=== PATIENT | female | born 1945 ===

== ENCOUNTER 2016-06-01 11:36 | Emergency (ER) | payer OTHER ==
[2016-06-01 11:41] VITALS: BP 145/67; PULSE 90; RESP 16; TEMP 97.8; O2SAT 98; BMI 31.0
--- NOTE | 2016-06-01 12:35 | ED PDOC ---
HPI: Eye Injury/Pain Time Seen by Provider: 06/01/16 12:32 Chief Complaint (Nursing): Eye Problem Chief Complaint (Provider): b/l eye irratation History Per: Patient Additional Complaint(s): 70yo F in ED for eval of b/l eye irritation with itching redness yellow drainage i the A, and blurry vision only with increased d/c in eye. denies photophobia, FB sensation, LANDIN. doesn't wear contact lenses dneis direct injury to eye. Past Medical History Reviewed: Historical Data, Nursing Documentation, Vital Signs Vital Signs: Last Vital Signs Temp 97.8 F 06/01/16 11:40 Pulse 90 06/01/16 11:40 Resp 16 06/01/16 11:40 BP 145/67 06/01/16 11:40 Pulse Ox 98 06/01/16 11:40 - Medical History PMH: Osteoporosis - Surgical History Surgical History: Cholecystectomy - Family History Family History: States: No Known Family Hx - Home Medications Home Medications: Ambulatory Orders Medication Instructions Recorded Alendronate [Fosamax] 1 tab PO QWK 06/01/16 Baclofen [Lioresal] 1 tab PO BID 06/01/16 Calcium Carbonate [Oscal] 1 tab PO DAILY 06/01/16 Pentoxifylline [Pentoxil] 1 tab PO BID 06/01/16 Polymyxin/Trimethoprim Sulfate 100 drop OD BID #1 bottle 06/01/16 [Polytrim Ophth Soln] - Allergies Allergies/Adverse Reactions: Allergies Allergy/AdvReac Type Severity Reaction Status Date / Time No Known Allergies Allergy Unverified 12/15/13 09:46 Review of Systems ROS Statement: Except As Marked, All Systems Reviewed And Found Negative Eyes: Positive for: Conjunctivae Inflammation Physical Exam - Reviewed Nursing Documentation Reviewed: Yes Vital Signs Reviewed: Yes - Physical Exam Appears: Positive for: Well, Non-toxic, No Acute Distress Head Exam: Positive for: ATRAUMATIC, NORMAL INSPECTION, NORMOCEPHALIC Skin: Positive for: Normal Color, Warm, DRY Eye Exam: Positive for: EOMI, PERRL, Conjunctival injection, Other (b/l eye: red , no FB noted on lid everision, (-) floursceiene uptake, (-) hyphema). Negative for: Periorbital swelling, Periorbital tenderness, Scleral icterus Cardiovascular/Chest: Positive for: Regular Rate, Rhythm Respiratory: Positive for: CNT, Normal Breath Sounds Neurologic/Psych: Positive for: Alert, Oriented - ECG O2 Sat by Pulse Oximetry: 98 Medical Decision Making Medical Decision Making: dx: bacterial conjunctivitis tx: polytrim advised to have pmd f/u Disposition - Clinical Impression Clinical Impression: Conjunctivitis - Patient ED Disposition Is Patient to be Admitted: No Counseled Patient/Family Regarding: Studies Performed, Diagnosis, Need For Followup, Rx Given - Disposition Disposition: Routine/Home Disposition Time: 12:36 Condition: STABLE Prescriptions: Polymyxin/Trimethoprim Sulfate [Polytrim Ophth Soln] 100 drop OD BID #1 bottle Instructions: Conjunctivitis (ED) Forms: [facility] ED School/Work Excuse Print Language: ENGLISH
== END 2016-06-01 12:42 | disposition home or self-care (01) ==
LOC: SUPCPDRO 11:36 → H.ER 11:36
DX: H10.9 Unspecified conjunctivitis (principal)

== ENCOUNTER 2018-02-05 14:45 | Emergency (ER) | payer MEDICARE, OTHER ==
[2018-02-05 14:57] VITALS: BMI 27.6
[2018-02-05 14:58] VITALS: BP 147/65; PULSE 86; RESP 20; TEMP 98.9; O2SAT 97
--- NOTE | 2018-02-05 15:23 | ED PDOC ---
Lower Extremity Pain/Injury Time Seen by Provider: 02/05/18 15:15 Chief Complaint (Nursing): Lower Extremity Problem/Injury Chief Complaint (Provider): Right Knee Pain History Per: Patient, Family (son) History/Exam Limitations: no limitations Onset/Duration Of Symptoms: Days (x4) Additional Complaint(s): 72 year old female presents to the ED s/p right shoulder surgery secondary to a workers comp injury for evaluation of progressively worsening right knee pain for the last four days. She was seen by her PMD for this and given Naproxen. Both Naproxen and Percocet taken today provided no control of her pain however. Denies falls. PMD: none provided Past Medical History Reviewed: Historical Data, Nursing Documentation, Vital Signs Vital Signs: Last Vital Signs Temp 98.9 F 02/05/18 14:58 Pulse 86 02/05/18 14:58 Resp 20 02/05/18 14:58 BP 147/65 02/05/18 14:58 Pulse Ox 97 02/05/18 14:58 - Medical History PMH: Osteoporosis - Surgical History Surgical History: Cholecystectomy - Family History Family History: States: Unknown Family Hx - Social History Current smoker - smoking cessation education provided: No Alcohol: None Drugs: Denies - Home Medications Home Medications: Ambulatory Orders Medication Instructions Recorded Alendronate [Fosamax] 1 tab PO QWK 06/01/16 Baclofen [Lioresal] 1 tab PO BID 06/01/16 Calcium Carbonate [Oscal] 1 tab PO DAILY 06/01/16 Pentoxifylline [Pentoxil] 1 tab PO BID 06/01/16 Polymyxin/Trimethoprim Sulfate 100 drop OD BID #1 bottle 06/01/16 [Polytrim Ophth Soln] - Allergies Allergies/Adverse Reactions: Allergies Allergy/AdvReac Type Severity Reaction Status Date / Time No Known Allergies Allergy Unverified 12/15/13 09:46 Review of Systems ROS Statement: Except As Marked, All Systems Reviewed And Found Negative Musculoskeletal: Positive for: Other (right knee pain) Physical Exam - Reviewed Nursing Documentation Reviewed: Yes Vital Signs Reviewed: Yes - Physical Exam Appears: Positive for: Uncomfortable Skin: Positive for: Normal Color Extremity: Positive for: Normal ROM (able to flex and extend right knee with mild pain), Tenderness (right medial knee with minimal effusion) Neurologic/Psych: Negative for: Motor/Sensory Deficits - ECG O2 Sat by Pulse Oximetry: 97 - Progress ED Course And Treament: knee xry right: neg for fx Medical Decision Making Medical Decision Making: Time: 1550 Initial Impression: right knee injury Initial Plan: --XR right knee Scribe Attestation: Documented by Tatyana Moctezuma, acting as a scribe for Radha Nam PA-C. Provider Scribe Attestation: All medical record entries made by the Scribe were at my direction and personally dictated by me. I have reviewed the chart and agree that the record accurately reflects my personal performance of the history, physical exam, medical decision making, and the department course for this patient. I have also personally directed, reviewed, and agree with the discharge instructions and disposition. Disposition - Clinical Impression Clinical Impression: Knee injury - Patient ED Disposition Is Patient to be Admitted: No - Disposition Referrals: Ronny Goncalves MD [Medical Doctor] - Disposition: Routine/Home Disposition Time: 16:17 Condition: FAIR Instructions: Knee Sprain (DC) Print Language: VIETNAMESE
--- NOTE | 2018-02-06 17:31 | RAD ---
Date of service: 02/05/2018 PROCEDURE: Right Knee Radiographs. HISTORY: Knee injury COMPARISON: None. FINDINGS: BONES: No evidence of acute displaced fracture nor dislocation JOINTS: Mild medial joint space narrowing. JOINT EFFUSION: Suspect trace joint effusion OTHER FINDINGS: None. IMPRESSION: No evidence of acute displaced fracture nor dislocation. Minor medial
== END 2018-02-05 16:54 | disposition home or self-care (01) ==
LOC: H.ER 14:45
DX: S89.91XA Unspecified injury of right lower leg, initial encounter (principal); M81.0 Age-related osteoporosis without current pathological fracture